=== PATIENT | female | born 1985 | race Caucasian/White ===

== ENCOUNTER 2019-05-14 00:27 | Inpatient (IN) | payer BC ==
[~2019-05-14 00:27] MED LIST: Bupivacaine 0.25% 10 ML SDV ONE; Lidocaine 1.5% with EPINEPHrine 1:200,000 5 ML Amp ONE
[2019-05-14] MEDS ORDERED: Calcium Carbonate 500 MG Tab.Chew PO PRN (01:10)
[2019-05-14] MEDS ORDERED: Acetaminophen 325 MG Tab PO PRN ×2 (01:10→17:14)
[2019-05-14] MEDS ORDERED: Ondansetron 4 MG/2 ML SDV IVPUSH PRN ×2 (01:10→08:24)
[2019-05-14] MEDS ORDERED: Sodium Chloride 0.9% 10 ML Syringe FLUSH PRN (01:10)
[2019-05-14] MEDS ORDERED: Oxytocin/Lactated Ringers 10 UNIT/1,000 ML BAG IV SCH ×2 (01:15)
[2019-05-14] MEDS: Lactated Ringers 1,000 ML IV SCH ×4 (04:06→12:13)
--- NOTE | 2019-05-14 06:23 | PCM.LDHP ---
L&D History of Present Illness - General Date of Service: 05/14/19 Admit Problem/Dx: Patient Status Order with Admit Dx/Problem 05/14/19 01:10 Patient Status [ADT] Routine Admission Diagnosis/Problem Admission Diagnosis/Problem 05/14/19 06:15 Yris is a 33-year-old 3 para 0020 white female who was admitted for spontaneous rupture membranes and early labor. She is presently at 39-4/7 weeks gestational age with an ZORAIDA of 05/17/2019. Source of Information: Patient History Limitations: Reports: No Limitations - History of Present Illness Introduction:: Yris is a 33-year-old 3 para 0020 white female who was admitted for spontaneous rupture membranes and early labor. She is presently at 39-4/7 weeks gestational age with an ZORAIDA of 05/17/2019.She was scheduled for induction on 2019 was delayed and during the course of the evening of that day had spontaneous rupture membranes with resultant clear amniotic fluid. She is not brett and making some cervical dilation. 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 This ZORAIDA is supported by multiple ultrasounds since that time. Patient has a history of recurrent loss with 2 losses 1 in late first trimester and one in the second trimester. Etiology of those losses uncertain but there was some question as to progesterone deficiency. Patient was treated with progesterone supplementation early in this . She is also treated with baby aspirin empirically. Had a relatively unremarkable . She is undergone testing since approximately 32 weeks gestational age with biophysical profiles on a weekly basis. Baby is made good growth interval. She is group B strep negative. She declined genetic testing. She is a gestational diabetic on diet control only with good results. She plans to breast-feed. She is okay with epidural in labor and delivery. course: First visit was on 09/24/2018 for a early confirmatory ultrasound. She seen on a regular basis during the course of weight gain was from 173 pounds up to 180 pounds for 17 pound gain. Fundal height growth was appropriate. Allergies: None Medications: 1. Baby [id number] mgone by mouth daily 2. vitamins daily Past medical history: 1. Miscarriage 2 as above. Past surgical history unremarkable. Family history: Mother is . She has had bile duct/liver cancer diagnosed in May 2018 and has since from this. Father is alive but has had valve replacement surgery for his heart valve defect. 3 brothers are alive and well. 3 sisters are alive and well. Maternal grandmother is secondary to breast cancer. Maternal grandfather is alive and well. Paternal grandmother is secondary to an aneurysm at age 51. She was a smoker. Paternal grandfather is at age 87. No family history of bleeding or clotting abnormalities otherwise. No anesthesia related issues or - related issues noted. Social history: Patient is . is Sandeep. They live in [place], [place]. 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 She does not use any significant most alcohol, drugs or tobacco. Review of systems: In general patient reports spontaneous rupture membranes with clear amniotic fluid and early onset of contractions. Skin: Negative Lungs: No infectious symptoms or shortness of breath Cardiovascular: No chest pain or exercise intolerance Breasts: No lumps, changes in size, pain, dimpling, discharge or axillary or supraclavicular concerns. changes are noted. GI: Negative : Body habitus changes noted secondary to . Musculoskeletal: Negative Neurological: Negative In general the patient is well-developed, well-nourished, pleasant female of stated age in no acute distress. On last evaluation in clinic blood pressure was 130/78 and 132/78. Weight was 180 pounds with pregravid weight of 173 pounds. Height is 5 feet 5 inches. heart rate at that time was 144. Prepregnancy body mass index was 28.3. Skin is warm dry without lesions. HEENT, neck and back within normal limits. Lungs are clear with good breath sounds in all lung chauhan. Cardiovascular exam shows regular and rhythm without murmurs. Breast exam is deferred at this time having been done previously and found to be normal. Abdomen is gravid with last fundal height clinic at 39 cm. Baby in vertex presentation.. Genital per bimanual exam on last valuation clinic showed cervix to be 2 cm, 80 % effaced, -3 station, very soft consistency, mid position. Vertex presentation confirmed. Extremities and neurological exam are grossly within normal limits. - Related Data Allergies/Adverse Reactions: Allergies Allergy/AdvReac Type Severity Reaction Status Date / Time No Known Allergies Allergy Verified 05/14/19 01:10 Home Medications: Home Meds Pnv No.95/Ferrous Fum/Folic AC [ Tablet] 1 each PO DAILY 12/30/17 [ History] Aspirin 81 mg PO DAILY 05/14/19 [History] Ferrous Sulfate [Iron] 325 mg PO DAILY 05/14/19 [History] Past Medical History - Past Health History Medical/Surgical History: Denies Medical/Surgical History HEENT History: Reports: Other (See Below) Other HEENT History: wears glasses OVERSEAMER History: Reports: Other OB/BYN History: 15 week demise with current Endocrine/Metabolic History: Reports: Diabetes, Gestational - Past Surgical History HEENT Surgical History: Reports: Oral Surgery, Other (See Below) Other HEENT Surgeries/Procedures: wisdom teeth removal Endocrine Surgical History: Reports: None Social & Family History - Family History Family Medical History: Noncontributory - Tobacco Use Smoking Status *Q: Never Smoker Second Hand Smoke Exposure: No - Recreational Drug Use Recreational Drug Use: No H&P Review of Systems - Review of Systems: Review Of Systems: See Below L&D Exam - Exam Exam: See Below - Vital Signs Vital Signs: Last Vital Signs Temp 37.1 C 05/14/19 01:10 Pulse 82 05/14/19 01:10 Resp 16 05/14/19 01:10 BP 135/83 05/14/19 01:10 Pulse Ox 99 05/14/19 01:10 Weight: 81.828 kg - Patient Data Lab Results Last 24 hrs: Laboratory Results - last 24 hr 05/14/19 Range/Units 01:44 WBC 11.49 H (3.98-10.04) K/mm3 RBC 3.53 L (3.98-5.22) M/mm3 Hgb 11.2 (11.2-15.7) gm/dl Hct 33.3 L (34.1-44.9) % MCV 94.3 (79.4-94.8) fl MCH 31.7 (25.6-32.2) pg MCHC 33.6 (32.2-35.5) g/dl RDW Std Deviation 46.8 H (36.4-46.3) fL Plt Count 247 (182-369) K/mm3 MPV 9.3 L (9.4-12.3) fl Result Diagrams: 05/14/19 01:44 Problem List Initiated/Reviewed/Updated: Yes Orders Last 24hrs: Active Orders 24 hr Category Date Time Status Patient Status [ADT] Routine ADT 05/14/19 01:10 Active Activity as Tolerated [RC] PFP Care 05/14/19 01:10 Active Communication Order [RC] ASDIRECTED Care 05/14/19 01:10 Active Heart Tones [RC] ASDIRECTED Care 05/14/19 01:11 Active Non Stress Test [RC] PER UNIT ROUTINE Care 05/14/19 01:10 Active Notify Provider [RC] PFP Care 05/14/19 01:10 Active Notify Provider [RC] PRN Care 05/14/19 01:10 Active Peripheral IV Care [RC] . DIRECTED Care 05/14/19 01:11 Active Vital Signs [RC] PER UNIT ROUTINE Care 05/14/19 01:10 Active Regular Diet [DIET] Diet 05/14/19 Breakfast Active RAPID PLASMA REAGIN,RPR [CHEM] Routine Lab 05/14/19 01:44 Received Acetaminophen [Tylenol] Med 05/14/19 01:10 Active 650 mg PO Q4H PRN Calcium Carbonate [Tums] Med 05/14/19 01:10 Active 1,000 mg PO Q2H PRN Lactated Ringers [Ringers, Lactated] 1,000 ml Med 05/14/19 01:15 Active IV ASDIRECTED Ondansetron [Zofran] Med 05/14/19 01:10 Active 4 mg IVPUSH Q4H PRN Oxytocin/Lactated Ringers [Pitocin in LR 10 Units/1,000 Med 05/14/19 01:15 Active ML] 10 unit in 1,000 ml IV .CONTINUOUS Oxytocin/Lactated Ringers [Pitocin in LR 10 Units/1,000 Med 05/14/19 01:15 Active ML] 10 unit in 1,000 ml IV TITRATE Sodium Chloride 0.9% [Saline Flush] Med 05/14/19 01:10 Active 10 ml FLUSH ASDIRECTED PRN Electronic Heart Tones Ext w TOCO [WOMSER] Oth 05/14/19 01:10 Ordered Routine Electronic Heart Tones Internal [WOMSER] Per Unit Oth 05/14/19 01:10 Ordered Routine Peripheral IV Insertion Adult [OM.PC] Routine Oth 05/14/19 01:10 Ordered Resuscitation Status Routine Resus Stat 05/14/19 01:10 Ordered Medication Orders Acetaminophen (Tylenol) 650 mg PO Q4H PRN PRN Reason: Pain (Mild 1-3) and fever Calcium Carbonate/Glycine (Tums) 1,000 mg PO Q2H PRN PRN Reason: Indigestion Lactated Ringer's (Ringers, Lactated) 1,000 mls @ 100 mls/hr IV ASDIRECTED BARRERA Last Admin: 05/14/19 04:06 Dose: 100 mls/hr Oxytocin/Lactated Ringer's (Pitocin In Lr 10 Units/1,000 Ml) 10 unit in 1,000 mls @ 12 mls/hr IV TITRATE BARRERA; Protocol Oxytocin/Lactated Ringer's (Pitocin In Lr 10 Units/1,000 Ml) 10 unit in 1,000 mls @ 500 mls/hr IV .CONTINUOUS BARRERA Ondansetron HCl (Zofran) 4 mg IVPUSH Q4H PRN PRN Reason: Nausea/Vomiting Sodium Chloride (Saline Flush) 10 ml FLUSH ASDIRECTED PRN PRN Reason: Keep Vein Open Assessment/Plan Comment:: 1. 39-4/7 week intrauterine , spontaneous rupture membranes with active labor and cervical change. 2. Risk factors for the include history of loss 2 3. Group B strep screen negative 4. Patient had influenza vaccination on 12/2018 and her T dap was given on 03/05. She is rubella immune. 5. Patient plans to breast-feed. 6. Patient is okay with epidural for labor analgesia. Plan: 1. Anticipate normal spontaneous vaginal delivery 2. CBC and RPR upon admission per protocol patient desire for epidural 3. Epidural per patient desire 4. Support patient's breast feeding decision
[2019-05-14] MEDS ORDERED: fentaNYL 100 MCG/2 ML SDV IVPUSH ONE (07:34)
[2019-05-14] MEDS ORDERED: ePHEDrine 50 MG/ML SDV IVPUSH PRN (08:24)
--- NOTE | 2019-05-14 08:28 | PCM.PREANE ---
Preanesthetic Assessment - Anesthesia/Transfusion/Family Hx Anesthesia History: No Prior Anesthesia Family History of Anesthesia Reaction: No Transfusion History: No Prior Transfusion(s) Intubation History: Unknown - Physical Assessment NPO Status Date: 05/14/19 Vital Signs: Last Vital Signs Temp 37.1 C 05/14/19 01:10 Pulse 82 05/14/19 01:10 Resp 16 05/14/19 01:10 BP 135/83 05/14/19 01:10 Pulse Ox 99 05/14/19 01:10 Height: 1.57 m Weight: 81.828 kg ASA Class: 2 Mental Status: Alert & Oriented x3 - Lab Values: Laboratory Last Values WBC 11.49 K/mm3 (3.98-10.04) H 05/14/19 01:44 RBC 3.53 M/mm3 (3.98-5.22) L 05/14/19 01:44 Hgb 11.2 gm/dl (11.2-15.7) 05/14/19 01:44 Hct 33.3 % (34.1-44.9) L 05/14/19 01:44 MCV 94.3 fl (79.4-94.8) 05/14/19 01:44 MCH 31.7 pg (25.6-32.2) 05/14/19 01:44 MCHC 33.6 g/dl (32.2-35.5) 05/14/19 01:44 RDW Std Deviation 46.8 fL (36.4-46.3) H 05/14/19 01:44 Plt Count 247 K/mm3 (182-369) 05/14/19 01:44 MPV 9.3 fl (9.4-12.3) L 05/14/19 01:44 All labs reviewed and noted and within acceptable ranges to proceed with epidural if desired. - Allergies Allergies/Adverse Reactions: Allergies Allergy/AdvReac Type Severity Reaction Status Date / Time No Known Allergies Allergy Verified 05/14/19 01:10 - Anesthesia Plan Pre-Op Medication Ordered: None - Acknowledgements Anesthesia Type Planned: Epidural Pt an Appropriate Candidate for the Planned Anesthesia: Yes Alternatives and Risks of Anesthesia Discussed w Pt/Guardian: Yes Pt/Guardian Understands and Agrees with Anesthesia Plan: Yes PreAnesthesia Questionnaire - Past Health History Medical/Surgical History: Denies Medical/Surgical History HEENT History: Reports: Other (See Below) Other HEENT History: wears glasses 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 OB/BYN History: 15 week demise with current Endocrine/Metabolic History: Reports: Diabetes, Gestational - Past Surgical History HEENT Surgical History: Reports: Oral Surgery, Other (See Below) Other HEENT Surgeries/Procedures: wisdom teeth removal Endocrine Surgical History: Reports: None - SUBSTANCE USE Smoking Status *Q: Never Smoker Second Hand Smoke Exposure: No Recreational Drug Use History: No - HOME MEDS Home Medications: Home Meds Pnv No.95/Ferrous Fum/Folic AC [ Tablet] 1 each PO DAILY 12/30/17 [ History] Aspirin 81 mg PO DAILY 05/14/19 [History] Ferrous Sulfate [Iron] 325 mg PO DAILY 05/14/19 [History] - CURRENT (IN HOUSE) MEDS Current Meds: Current Medications Acetaminophen (Tylenol) 650 mg PO Q4H PRN PRN Reason: Pain (Mild 1-3) and fever Calcium Carbonate/Glycine (Tums) 1,000 mg PO Q2H PRN PRN Reason: Indigestion Ephedrine Sulfate (Ephedrine Sulfate) 5 mg IVPUSH ASDIRECTED PRN PRN Reason: Hypotension Fentanyl (Sublimaze) 100 mcg EPIDUR Q3H PRN PRN Reason: Pain Fentanyl/Bupivacaine HCl (Fentanyl/Bupivacaine/Ns 2 Mcg-0.125% 100 Ml) 100 ml EPIDUR ASDIRECTED BARRERA Lactated Ringer's (Ringers, Lactated) 1,000 mls @ 100 mls/hr IV ASDIRECTED BARRERA Last Admin: 05/14/19 07:59 Dose: 100 mls/hr Oxytocin/Lactated Ringer's (Pitocin In Lr 10 Units/1,000 Ml) 10 unit in 1,000 mls @ 12 mls/hr IV TITRATE BARRERA; Protocol Oxytocin/Lactated Ringer's (Pitocin In Lr 10 Units/1,000 Ml) 10 unit in 1,000 mls @ 500 mls/hr IV .CONTINUOUS BARRERA Phenylephrine HCl 1 mg/ Sodium (Chloride) 10.1 mls @ 1 mls/sec IV TITRATE BARRERA; Protocol Ondansetron HCl (Zofran) 4 mg IVPUSH Q4H PRN PRN Reason: Nausea/Vomiting Ondansetron HCl (Zofran) 4 mg IVPUSH ONETIME PRN PRN Reason: Nausea/Vomiting Sodium Chloride (Saline Flush) 10 ml FLUSH ASDIRECTED PRN PRN Reason: Keep Vein Open Discontinued Medications Fentanyl (Sublimaze) 50 mcg IVPUSH ONETIME ONE Stop: 05/14/19 07:35
[2019-05-14] MEDS ORDERED: Phenylephrine 1 MG in Sodium Chloride 0.9% 10 ML IV PRN (08:30)
[2019-05-14] MEDS ORDERED: Bupivacaine/fentaNYL/NS 100 ML Bag EPIDUR SCH (08:30)
[2019-05-14] MEDS: fentaNYL 100 MCG/2 ML SDV EPIDUR PRN ×2 (09:03→13:27)
--- NOTE | 2019-05-14 09:24 | PCM.PREANE ---
Preanesthetic Assessment - Procedure Proposed Procedure: magali - Anesthesia/Transfusion/Family Hx Anesthesia History: No Prior Anesthesia Family History of Anesthesia Reaction: No Transfusion History: No Prior Transfusion(s) Intubation History: Unknown - Review of Systems General: Chills (today) Pulmonary: No Symptoms Cardiovascular: No Symptoms Gastrointestinal: No Symptoms Neurological: No Symptoms Other: Reports: Diabetes (diet) - Physical Assessment NPO Status Date: 05/14/19 Vital Signs: Last Vital Signs Temp 98.7 F 05/14/19 01:10 Pulse 82 05/14/19 01:10 Resp 16 05/14/19 01:10 BP 135/83 05/14/19 01:10 Pulse Ox 99 05/14/19 01:10 Height: 5 ft 2 in Weight: 81.828 kg ASA Class: 2 Mental Status: Alert & Oriented x3 Airway Class: Mallampati = 1 Dentition: Reports: Normal Dentition Thyro-Mental Finger Breadths: 3 Mouth Opening Finger Breadths: 3 ROM/Head Extension: Full Lungs: Clear to Auscultation, Normal Respiratory Effort Cardiovascular: Regular Rate, Regular Rhythm, No Murmurs - Lab Values: Laboratory Last Values WBC 11.49 K/mm3 (3.98-10.04) H 05/14/19 01:44 RBC 3.53 M/mm3 (3.98-5.22) L 05/14/19 01:44 Hgb 11.2 gm/dl (11.2-15.7) 05/14/19 01:44 Hct 33.3 % (34.1-44.9) L 05/14/19 01:44 MCV 94.3 fl (79.4-94.8) 05/14/19 01:44 MCH 31.7 pg (25.6-32.2) 05/14/19 01:44 MCHC 33.6 g/dl (32.2-35.5) 05/14/19 01:44 RDW Std Deviation 46.8 fL (36.4-46.3) H 05/14/19 01:44 Plt Count 247 K/mm3 (182-369) 05/14/19 01:44 MPV 9.3 fl (9.4-12.3) L 05/14/19 01:44 - Allergies Allergies/Adverse Reactions: Allergies Allergy/AdvReac Type Severity Reaction Status Date / Time No Known Allergies Allergy Verified 05/14/19 01:10 - Blood Blood Available: No - Acknowledgements Anesthesia Type Planned: Epidural Pt an Appropriate Candidate for the Planned Anesthesia: Yes Alternatives and Risks of Anesthesia Discussed w Pt/Guardian: Yes Pt/Guardian Understands and Agrees with Anesthesia Plan: Yes PreAnesthesia Questionnaire - Past Health History Medical/Surgical History: Denies Medical/Surgical History HEENT History: Reports: Other (See Below) Other HEENT History: wears glasses Cardiovascular History: Reports: None Respiratory History: Reports: None Gastrointestinal History: Reports: GERD (with preg) 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: : 3 (39 4 weeks) Para: 0 Other OB/BYN History: 15 week demise with current Endocrine/Metabolic History: Reports: Diabetes, Gestational - Past Surgical History HEENT Surgical History: Reports: Oral Surgery, Other (See Below) Other HEENT Surgeries/Procedures: wisdom teeth removal Endocrine Surgical History: Reports: None - SUBSTANCE USE Smoking Status *Q: Never Smoker Tobacco Use Within Last Twelve Months: No Second Hand Smoke Exposure: No Days Per Week of Alcohol Use: 0 Recreational Drug Use History: No - HOME MEDS Home Medications: Home Meds Pnv No.95/Ferrous Fum/Folic AC [ Tablet] 1 each PO DAILY 12/30/17 [ History] Aspirin 81 mg PO DAILY 05/14/19 [History] Ferrous Sulfate [Iron] 325 mg PO DAILY 05/14/19 [History] - CURRENT (IN HOUSE) MEDS Current Meds: Current Medications Acetaminophen (Tylenol) 650 mg PO Q4H PRN PRN Reason: Pain (Mild 1-3) and fever Calcium Carbonate/Glycine (Tums) 1,000 mg PO Q2H PRN PRN Reason: Indigestion Ephedrine Sulfate (Ephedrine Sulfate) 5 mg IVPUSH ASDIRECTED PRN PRN Reason: Hypotension Fentanyl (Sublimaze) 100 mcg EPIDUR Q3H PRN PRN Reason: Pain Last Admin: 05/14/19 09:03 Dose: 100 mcg Fentanyl/Bupivacaine HCl (Fentanyl/Bupivacaine/Ns 2 Mcg-0.125% 100 Ml) 100 ml EPIDUR ASDIRECTED BARRERA Last Admin: 05/14/19 09:02 Dose: 100 ml Lactated Ringer's (Ringers, Lactated) 1,000 mls @ 100 mls/hr IV ASDIRECTED BARRERA Last Admin: 05/14/19 09:00 Dose: 100 mls/hr Oxytocin/Lactated Ringer's (Pitocin In Lr 10 Units/1,000 Ml) 10 unit in 1,000 mls @ 12 mls/hr IV TITRATE BARRERA; Protocol Oxytocin/Lactated Ringer's (Pitocin In Lr 10 Units/1,000 Ml) 10 unit in 1,000 mls @ 500 mls/hr IV .CONTINUOUS BARRERA Phenylephrine HCl 1 mg/ Sodium (Chloride) 10.1 mls @ 1 mls/sec IV TITRATE PRN; Protocol PRN Reason: HYPOTENSION Ondansetron HCl (Zofran) 4 mg IVPUSH Q4H PRN PRN Reason: Nausea/Vomiting Ondansetron HCl (Zofran) 4 mg IVPUSH ONETIME PRN PRN Reason: Nausea/Vomiting Sodium Chloride (Saline Flush) 10 ml FLUSH ASDIRECTED PRN PRN Reason: Keep Vein Open Discontinued Medications Fentanyl (Sublimaze) 50 mcg IVPUSH ONETIME ONE Stop: 05/14/19 07:35
[2019-05-14] MEDS ORDERED: Lidocaine 1% 50 ML MDV ONE (16:31)
--- NOTE | 2019-05-14 17:03 | PCM.SN ---
- Free Text/Narrative Note: Delivery note: Yris is a 33-year-old 3 para 0020 white female who was admitted for spontaneous rupture membranes and early labor. She is presently at 39-4/7 weeks gestational age with an ZORAIDA of 05/17/2019.Patient is gestational diabetic does reasonably well controlled with diet alone. She is admitted during the course of the night, made steady progress. She had an epidural for labor analgesia. She became completely dilated at approximately 2:30 hours. At approximately 1610 hrs. patient was moderately fatigued and was requesting intervention for her labor. Discussion was held her as to options including continued pushing, attempted vacuum extraction of the baby and primary section. Risks and benefits of each were discussed. Patient opted for vacuum extraction delivery. This was then undertaken. At 1614 hrs. a viable, cortes, male with Apgars of 8 and 9, a weight of 4130 g (9 lbs. 2 oz.), a length of 21.0 inches was delivered via vacuum extraction with one contraction. There were no pop offs. The baby was placed on mom's abdomen. The cord was allowed to pulsate 3 minutes and then was clamped 2 and cut by the patient's Sandeep. Pitocin was increased to 500 mL an hour to facilitate increase in uterine tone and decreased likelihood of bleeding. It should be noted there was terminal meconium that followed the baby out. There was nuchal cord 1 which was reduced over the baby's head without problems. There is no evidence of any shoulder dystocia or other delivery problems. There was a combination of lacerations including a by sulcus vaginal laceration , a right vaginal/labia minora laceration and a third degree perineal laceration. These were all repaired in routine fashion using 3-0 Monocryl suture. The perineal laceration was infiltrated with lidocaine 1%20 mL total. The placenta delivered at 1619 hrs. in a Marks presentation, appeared intact and complete and was discarded per patient desire. Vocal cord had 3 vessels. Cord blood was obtained prior to delivery of the placenta. Estimated blood loss was approximately 300 mL. Patient plans to breast-feed. Condition: Good
[2019-05-14] MEDS ORDERED: Benzocaine/Menthol 20%-0.5% Spray 56 GM Canister TOP PRN (17:14)
[2019-05-14] MEDS ORDERED: Witch Hazel Medicated Pads 40/Jar TOP PRN (17:14)
[2019-05-14] MEDS: Docusate Sodium 100 MG Cap PO SCH (20:14)
[2019-05-14] MEDS: Ibuprofen 600 MG Tab PO PRN (20:14)
[2019-05-15] MEDS: Ibuprofen 600 MG Tab PO PRN ×4 (04:15→18:50)
--- NOTE | 2019-05-15 07:03 | PCM.SN ---
- Free Text/Narrative Note: note: Patient is doing well in the period. Minimal lochia, voiding well, ambulated without problems. Nursing without concerns. Patient is afebrile, vital signs are stable Abdomen is flat, soft, uterus is below the umbilicus and is firm and nontender. Legs are nontender. Assessment: recovery going well. Plan: Routine care. Patient be discharged home within the next 24-48 hours.
[2019-05-15] MEDS: Prenatal Multivitamin with Calcium/Folic Acid/Iron Tab PO SCH (10:33)
[2019-05-15] MEDS: Docusate Sodium 100 MG Cap PO SCH ×2 (10:33→20:50)
--- NOTE | 2019-05-15 12:06 | PCM48HPAN ---
Post Anesthesia Note - EVALUATION WITHIN 48HRS OF ANESTHETIC Vital Signs in Normal Range: Yes Patient Participated in Evaluation: Yes Respiratory Function Stable: Yes Airway Patent: Yes Cardiovascular Function Stable: Yes Hydration Status Stable: Yes Pain Control Satisfactory: Yes Nausea and Vomiting Control Satisfactory: Yes Mental Status Recovered: Yes Vital Signs: Last Vital Signs Temp 36.8 C 05/15/19 04:09 Pulse 78 05/15/19 09:00 Resp 16 05/15/19 09:00 BP 122/53 L 05/15/19 09:00 Pulse Ox 100 05/15/19 09:00 - COMMENTS/OBSERVATIONS Free Text/Narrative:: Up walking around today without difficulty. No further questions or concerns.
[2019-05-15] MEDS ORDERED: Hydrocortisone Acetate 25 MG Supp RECTAL PRN (20:13)
[2019-05-16] MEDS: Ibuprofen 600 MG Tab PO PRN ×2 (06:22→10:27)
[2019-05-16] MEDS: Prenatal Multivitamin with Calcium/Folic Acid/Iron Tab PO SCH (10:05)
[2019-05-16] MEDS: Docusate Sodium 100 MG Cap PO SCH (10:05)
[2019-05-16 10:08] VITALS: BP 130/72; PULSE 77
[2019-05-16] MEDS ORDERED: Magnesium Hydroxide 400 MG/5 ML Susp 30 ML Cup PO SCH (10:30)
--- NOTE | 2019-05-16 10:30 | PCM.SN ---
- Free Text/Narrative Note: Post Progress Note PPD #2 Subjective: Doing well overall. Ambulating without difficulty. Lochia minimal. Voiding without difficulty. Tolerating regular diet without nausea or vomiting. Pain controlled with oral medications. Reports feeling sore in her pelvis and low back. Medications are helping with this however. Reports that she is passing flatus and has not had a bowel movement at this time. Breast-feeding with minimal difficulty. Objective: Vitals: Vital Signs - 24 hr 05/15/19 05/15/19 05/16/19 14:32 20:08 02:53 Temperature 36.7 C 36.4 C Pulse, 87 84 84 Peripheral Respiratory 15 14 14 Rate Blood Pressure 109/53 L 124/70 127/75 O2 Sat by Pulse 98 97 98 Oximetry 05/16/19 10:04 Temperature Pulse, 77 Peripheral Respiratory 14 Rate Blood Pressure 130/72 O2 Sat by Pulse 99 Oximetry Physical Exam General: Alert and oriented, no acute distress Lungs: Clear to auscultation bilaterally Heart: Regular rate and rhythm Abdomen: Soft, minimal appropriate tenderness, non-distended, fundus midline, nontender, and at the umbilicus Extremities: Trace edema in bilateral lower extremities to mid shins ASSESSMENT: 33-year-old female -0-2-1 s/p vacuum-assisted vaginal delivery PPD #2, complicated by third-degree laceration and A1 gestational diabetes PLAN: Doing well Breast-feeding with minimal difficulty. Assist as needed Lochia minimal. Continue to monitor for appropriate lochia. Patient currently taking Colace twice daily. Recommend for her to start taking milk of magnesia 30 mL 1-3 times daily to help with bowel movements Continue routine care Discharge home today Anthony Samuel MD 10:29 AM 05/16/2019
--- NOTE | 2019-05-16 10:43 | PCM.DCSUM1 ---
Discharge Summary - Hospital Course Free Text/Narrative:: Delivery note: Yris is a 33-year-old 3 para 0020 white female who was admitted for spontaneous rupture membranes and early labor. She is presently at 39-4/7 weeks gestational age with an ZORAIDA of 05/17/2019.Patient is gestational diabetic does reasonably well controlled with diet alone. She is admitted during the course of the night, made steady progress. She had an epidural for labor analgesia. She became completely dilated at approximately 2:30 hours. At approximately 1610 hrs. patient was moderately fatigued and was requesting intervention for her labor. Discussion was held her as to options including continued pushing, attempted vacuum extraction of the baby and primary section. Risks and benefits of each were discussed. Patient opted for vacuum extraction delivery. This was then undertaken. At 1614 hrs. a viable, cortes, male infant with Apgars of 8 and 9, a weight of 4130 g (9 lbs. 2 oz.), a length of 21.0 inches was delivered via vacuum extraction with one contraction. There were no pop offs. The baby was placed on mom's abdomen. The cord was allowed to pulsate 3 minutes and then was clamped 2 and cut by the patient's Sandeep. Pitocin was increased to 500 mL an hour to facilitate increase in uterine tone and decreased likelihood of bleeding. It should be noted there was terminal meconium that followed the baby out. There was nuchal cord 1 which was reduced over the baby's head without problems. There is no evidence of any shoulder dystocia or other delivery problems. There was a combination of lacerations including a by sulcus vaginal laceration , a right vaginal/labia minora laceration and a third degree perineal laceration. These were all repaired in routine fashion using 3-0 Monocryl suture. The perineal laceration was infiltrated with lidocaine 1%20 mL total. The placenta delivered at 1619 hrs. in a Marks presentation, appeared intact and complete and was discarded per patient desire. Vocal cord had 3 vessels. Cord blood was obtained prior to delivery of the placenta. Estimated blood loss was approximately 300 mL. Patient plans to breast-feed. Condition: Good HPI Initial Comments: Delivery note: Yris is a 33-year-old 3 para 0020 white female who was admitted for spontaneous rupture membranes and early labor. She is presently at 39-4/7 weeks gestational age with an ZORAIDA of 05/17/2019.Patient is gestational diabetic does reasonably well controlled with diet alone. She is admitted during the course of the night, made steady progress. She had an epidural for labor analgesia. She became completely dilated at approximately 2:30 hours. At approximately 1610 hrs. patient was moderately fatigued and was requesting intervention for her labor. Discussion was held her as to options including continued pushing, attempted vacuum extraction of the baby and primary section. Risks and benefits of each were discussed. Patient opted for vacuum extraction delivery. This was then undertaken. At 1614 hrs. a viable, cortes, male with Apgars of 8 and 9, a weight of 4130 g (9 lbs. 2 oz.), a length of 21.0 inches was delivered via vacuum extraction with one contraction. There were no pop offs. The baby was placed on mom's abdomen. The cord was allowed to pulsate 3 minutes and then was clamped 2 and cut by the patient's Sandeep. Pitocin was increased to 500 mL an hour to facilitate increase in uterine tone and decreased likelihood of bleeding. It should be noted there was terminal meconium that followed the baby out. There was nuchal cord 1 which was reduced over the baby's head without problems. There is no evidence of any shoulder dystocia or other delivery problems. There was a combination of lacerations including a by sulcus vaginal laceration , a right vaginal/labia minora laceration and a third degree perineal laceration. These were all repaired in routine fashion using 3-0 Monocryl suture. The perineal laceration was infiltrated with lidocaine 1%20 mL total. The placenta delivered at 1619 hrs. in a Marks presentation, appeared intact and complete and was discarded per patient desire. Vocal cord had 3 vessels. Cord blood was obtained prior to delivery of the placenta. Estimated blood loss was approximately 300 mL. Patient plans to breast-feed. Condition: Good Brief History: Delivery note: Yris is a 33-year-old 3 para 0020 white female who was admitted for spontaneous rupture membranes and early labor. She is presently at 39-4/7 weeks gestational age with an ZORAIDA of 2019.Patient is gestational diabetic does reasonably well controlled with diet alone. She is admitted during the course of the night, made steady progress. She had an epidural for labor analgesia. She became completely dilated at approximately 2:30 hours. At approximately 1610 hrs. patient was moderately fatigued and was requesting intervention for her labor. Discussion was held her as to options including continued pushing, attempted vacuum extraction of the baby and primary section. Risks and benefits of each were discussed. Patient opted for vacuum extraction delivery. This was then undertaken. At 1614 hrs. a viable, cortes, male with Apgars of 8 and 9, a weight of 4130 g (9 lbs. 2 oz.), a length of 21.0 inches was delivered via vacuum extraction with one contraction. There were no pop offs. The baby was placed on mom's abdomen. The cord was allowed to pulsate 3 minutes and then was clamped 2 and cut by the patient's Sandeep. Pitocin was increased to 500 mL an hour to facilitate increase in uterine tone and decreased likelihood of bleeding. It should be noted there was terminal meconium that followed the baby out. There was nuchal cord 1 which was reduced over the baby's head without problems. There is no evidence of any shoulder dystocia or other delivery problems. There was a combination of lacerations including a by sulcus vaginal laceration , a right vaginal/labia minora laceration and a third degree perineal laceration. These were all repaired in routine fashion using 3-0 Monocryl suture. The perineal laceration was infiltrated with lidocaine 1%20 mL total. The placenta delivered at 1619 hrs. in a Marks presentation, appeared intact and complete and was discarded per patient desire. Vocal cord had 3 vessels. Cord blood was obtained prior to delivery of the placenta. Estimated blood loss was approximately 300 mL. Patient plans to breast-feed. Condition: Good Diagnosis: Stroke: No - Discharge Data Discharge Date: 05/16/19 Discharge Disposition: Home, Self-Care 01 Condition: Good - Referral to Home Health Primary Care Physician: Richard Beckford MD - Discharge Diagnosis/Problem(s) (1) 39 weeks gestation of SNOMED Code(s): 53615490 ICD Code: Z3A.39 - 39 WEEKS GESTATION OF Status: Acute Current Visit: Yes (2) Vaginal delivery SNOMED Code(s): 448165231 ICD Code: O80 - ENCOUNTER FOR FULL-TERM UNCOMPLICATED DELIVERY Status: Acute Current Visit: Yes (3) Status post vacuum-assisted vaginal delivery SNOMED Code(s): 370214157, 51626038958463031 ICD Code: Z87.59 - PERSONAL HISTORY OF COMP OF PREG, CHLDBRTH AND THE PUERP Status: Acute Current Visit: Yes (4) Third degree perineal laceration during delivery SNOMED Code(s): 69942552, 024936187 ICD Code: O70.20 - THIRD DEGREE PERINEAL LACERATION DURING DELIVERY, UNSP Status: Acute Current Visit: Yes (5) White classification A1 gestational diabetes mellitus SNOMED Code(s): 08475762 ICD Code: O24.410 - GESTATIONAL DIABETES MELLITUS IN , DIET CONTROLLED Status: Acute Current Visit: Yes - Patient Summary/Data Complications: Vacuum assisted vaginal delivery with third degree perineal laceration. Consults: None Hospital Course: Yris Flores was admitted for spontaneous rupture of membranes with clear fluid. On admission her cervix was dilated to 2 cm. She was GBS negative. She was given pitocin for augmentation. She was given an epidural for anesthesia. She progressed to complete and began pushing. During pushing patient became fatigued and decision was made to proceed with vacuum-assisted vaginal delivery. On 05/14/2019 she had a vacuum-assisted vaginal delivery of a live male at 16:14. Apgars of 8 and 9. Weight of 4130 g (9 pounds 1.7 ounces). Her delivery was complicated by third-degree laceration that was repaired in normal fashion. Her course was uneventful. Her pain was well controlled and she had minimal lochia. She was ambulating, tolerating a regular diet and voiding normally. She was breast-feeding with minimal difficulty. She was afebrile and her hematocrit was 33.3 on admission.she had not had a bowel movement prior to discharge but was passing flatus. She was started on Colace and milk of magnesia to help with bowel movements. She desired to be discharged home on the morning of PPD #2. Her blood type is A+. - Patient Instructions Diet: Regular Diet as Tolerated Activity: Apply Ice, As Tolerated Activity, Other: Nothing in the vagina for 6 weeks Driving: May Drive Today Showering/Bathing: May Shower Wound/Incision Care: Keep Operative Site/Wound Site Clean and Dry Notify Provider of: Fever, Increased Pain, Swelling and Redness, Drainage, Nausea and/or Vomiting Other/Special Instructions: Please contact your physician's office if you have heavy vaginal bleeding enough to soak a pad in less than an hour for several hours. Monitor for any signs of an infection in the breasts with severe pain or redness of the breast. You will want to ensure that you do not have any significant constipation or straining with bowel movements. You want to use Colace twice daily with a large glass of water with each dose to help have softer bowel movements. You want to ensure that the bowel movements are about the consistency of toothpaste to reduce chances for damage to the vaginal laceration. You may use milk of magnesia 30 mL (1 capful) 1-3 times daily to help with constipation if you feel like you are becoming more constipated. - Discharge Plan *PRESCRIPTION DRUG MONITORING PROGRAM REVIEWED*: Not Applicable *COPY OF PRESCRIPTION DRUG MONITORING REPORT IN PATIENT LUCIANA: Not Applicable Home Medications: Home Meds Pnv No.95/Ferrous Fum/Folic AC [ Tablet] 1 each PO DAILY 12/30/17 [ History] Ferrous Sulfate [Iron] 325 mg PO DAILY 05/14/19 [History] Acetaminophen [Tylenol] 650 mg PO Q6H PRN #30 tablet 05/16/19 [Rx] Benzocaine/Menthol [Dermoplast Pain Relief [place]] 1 spray TOP ASDIRECTED PRN canister 05/16/19 [Rx] Docusate Sodium [Colace] 100 mg PO BID cap 05/16/19 [Rx] Hydrocortisone Acetate [Anucort-HC] 25 mg RECTAL BID PRN supp 05/16/19 [Rx] Ibuprofen [Motrin] 600 mg PO Q6H PRN tablet 05/16/19 [Rx] Magnesium Hydroxide [Milk of Magnesia] 30 ml PO BID cup 05/16/19 [Rx] witch Mehnaz [Tucks] 1 pad TOP ASDIRECTED PRN pad 05/16/19 [Rx] Patient Handouts: Disposable Sitz Bath, Care of a Perineal Tear, Care After Vaginal Delivery Referrals: Richard Beckford MD [Primary Care Provider] - (Follow-up in 1 to 2 weeks for routine check for third-degree laceration or earlier as needed.) - Discharge Summary/Plan Comment DC Time >30 min.: No - Patient Data Vitals - Most Recent: Last Vital Signs Temp 36.4 C 05/16/19 02:53 Pulse 77 05/16/19 10:04 Resp 14 05/16/19 10:04 BP 130/72 05/16/19 10:04 Pulse Ox 99 05/16/19 10:04 Weight - Most Recent: 81.828 kg Med Orders - Current: Current Medications Acetaminophen (Tylenol) 650 mg PO Q4H PRN PRN Reason: mild pain or fever Benzocaine/Menthol (Dermoplast Pain Relief [place]) 0 gm TOP ASDIRECTED PRN PRN Reason: Perineal Comfort Measure Last Admin: 05/14/19 20:16 Dose: 1 canister Docusate Sodium (Colace) 100 mg PO BID [facility] Last Admin: 05/16/19 10:05 Dose: 100 mg Hydrocortisone Acetate (Anucort-Hc) 25 mg RECTAL BID PRN PRN Reason: rectal pain Last Admin: 05/15/19 20:50 Dose: 25 mg Ibuprofen (Motrin) 600 mg PO Q4H PRN PRN Reason: Mild pain or fever Last Admin: 05/16/19 10:27 Dose: 600 mg Magnesium Hydroxide (Milk Of Magnesia) 30 ml PO BID [facility] Last Admin: 05/16/19 10:28 Dose: 30 ml Prenat Multivit/Flight Control Specialist/Iron/Folic Ac ( Plus Iron) 1 each PO DAILY [facility] Last Admin: 05/16/19 10:05 Dose: 1 each Witch Mehnaz (Tucks) 1 pad TOP ASDIRECTED PRN PRN Reason: Perineal Comfort Measure Last Admin: 05/14/19 20:16 Dose: 1 tub Discontinued Medications Acetaminophen (Tylenol) 650 mg PO Q4H PRN PRN Reason: Pain (Mild 1-3) and fever Bupivacaine HCl (Sensorcaine-Mpf 0.25%) 10 ml .ROUTE .STK-MED ONE Stop: 05/14/19 00:01 Calcium Carbonate/Glycine (Tums) 1,000 mg PO Q2H PRN PRN Reason: Indigestion Ephedrine Sulfate (Ephedrine Sulfate) 5 mg IVPUSH ASDIRECTED PRN PRN Reason: Hypotension Fentanyl (Sublimaze) 50 mcg IVPUSH ONETIME ONE Stop: 05/14/19 07:35 Last Admin: 05/14/19 12:00 Dose: Not Given Fentanyl (Sublimaze) 100 mcg EPIDUR Q3H PRN PRN Reason: Pain Last Admin: 05/14/19 13:27 Dose: 100 mcg Fentanyl/Bupivacaine HCl (Fentanyl/Bupivacaine/Ns 2 Mcg-0.125% 100 Ml) 100 ml EPIDUR ASDIRECTED [facility] Last Admin: 05/14/19 09:02 Dose: 100 ml Lactated Ringer's (Ringers, Lactated) 1,000 mls @ 100 mls/hr IV ASDIRECTED [facility] Last Admin: 05/14/19 12:13 Dose: 100 mls/hr Oxytocin/Lactated Ringer's (Pitocin In Lr 10 Units/1,000 Ml) 10 unit in 1,000 mls @ 12 mls/hr IV TITRATE [facility]; Protocol Last Admin: 05/14/19 12:04 Dose: 2 munits/min, 12 mls/hr Oxytocin/Lactated Ringer's (Pitocin In Lr 10 Units/1,000 Ml) 10 unit in 1,000 mls @ 500 mls/hr IV .CONTINUOUS [facility] Phenylephrine HCl 1 mg/ Sodium (Chloride) 10.1 mls @ 1 mls/sec IV TITRATE PRN; Protocol PRN Reason: HYPOTENSION Lidocaine HCl (Xylocaine 1%) Confirm Administered Dose 50 ml .ROUTE .STK-MED ONE Stop: 05/14/19 16:32 Last Admin: 05/14/19 16:45 Dose: 50 ml Lidocaine/Epinephrine (Xylocaine-Mpf 1.5% W/Epinephrine 1:200,000) 5 ml .ROUTE .STK-MED ONE Stop: 05/14/19 00:01 Ondansetron HCl (Zofran) 4 mg IVPUSH Q4H PRN PRN Reason: Nausea/Vomiting Ondansetron HCl (Zofran) 4 mg IVPUSH ONETIME PRN PRN Reason: Nausea/Vomiting Sodium Chloride (Saline Flush) 10 ml FLUSH ASDIRECTED PRN PRN Reason: Keep Vein Open
== END 2019-05-16 12:00 | disposition home or self-care (01) | DRG 542 ==
LOC: JD.OBCHECK 00:27 → JD.OB 00:31 → JD.OBCHECK 01:21 → OBSVTOIN 16:14 → JD.OB 16:47
PROVIDERS: ADMIT Obstetrics & Gynecology; ATTEND Obstetrics & Gynecology
PROC: 10D07Z6 Extraction of Products of Conception, Vacuum, Via Natural or Artificial Opening (ICD-10-PCS; principal; 2019-05-14)
PROC: 0DQR0ZZ Repair Anal Sphincter, Open Approach (ICD-10-PCS; 2019-05-14)
PROC: 3E0R3BZ Introduction of Anesthetic Agent into Spinal Canal, Percutaneous Approach (ICD-10-PCS; 2019-05-14)
DX: O24.410 Gestational diabetes mellitus in pregnancy, diet controlled (principal); O77.0 Labor and delivery complicated by meconium in amniotic fluid; O69.81X0 Labor and delivery complicated by cord around neck, without compression, not applicable or unspecified; O70.20 Third degree perineal laceration during delivery, unspecified; Z3A.39 39 weeks gestation of pregnancy; Z37.0 Single live birth; Z79.82 Long term (current) use of aspirin; Z79.899 Other long term (current) drug therapy
CPT/HCPCS: 36415; 51702; 59025; 59409; 85027; 86592; A9270-GY; J2001; J2590; J3010; J3490; J7120

== ENCOUNTER 2020-12-04 03:36 | Inpatient (IN) | payer BC ==
[~2020-12-04 03:36] MED LIST changes: -Lidocaine 1.5% with EPINEPHrine 1:200,000 5 ML Amp ONE
[2020-12-04] MEDS ORDERED: Sodium Chloride 0.9% 10 ML Syringe FLUSH PRN (04:55)
[2020-12-04] MEDS ORDERED: Nalbuphine 10 MG/1 ML Vial IVPUSH PRN (04:55)
[2020-12-04] MEDS ORDERED: Oxytocin/Lactated Ringers 10 UNIT/1,000 ML BAG IV SCH ×2 (05:00)
[2020-12-04] MEDS: Lactated Ringers 1,000 ML IV SCH ×2 (07:02→07:39)
[2020-12-04] MEDS ORDERED: Bupivacaine/fentaNYL/NS 100 ML Bag EPIDUR PRN (07:52)
[2020-12-04] MEDS ORDERED: diphenhydrAMINE 50 MG/ML SDV IVPUSH PRN (07:52)
[2020-12-04] MEDS ORDERED: fentaNYL 100 MCG/2 ML SDV EPIDUR PRN (07:52)
[2020-12-04] MEDS ORDERED: ePHEDrine 50 MG/ML SDV IVPUSH PRN (07:52)
--- NOTE | 2020-12-04 08:27 | PCM.PREANE ---
Preanesthetic Assessment - Procedure Proposed Procedure: epidural - Anesthesia/Transfusion/Family Hx Anesthesia History: Prior Anesthesia Without Reaction Family History of Anesthesia Reaction: No Transfusion History: No Prior Transfusion(s) Intubation History: Unknown - Review of Systems General: Fatigue Pulmonary: No Symptoms Cardiovascular: No Symptoms Gastrointestinal: Abdominal Pain (labor) Neurological: No Symptoms Other: Reports: None - Physical Assessment Vital Signs: Last Vital Signs Temp 37.2 C 12/04/20 04:00 Pulse 88 12/04/20 04:00 Resp 16 12/04/20 04:00 BP 137/69 12/04/20 04:00 Pulse Ox 100 12/04/20 04:00 Height: 1.57 m Weight: 81.329 kg ASA Class: 2 Mental Status: Alert & Oriented x3 Airway Class: Mallampati = 1 Dentition: Reports: Normal Dentition Thyro-Mental Finger Breadths: 3 Mouth Opening Finger Breadths: 3 ROM/Head Extension: Full Lungs: Clear to Auscultation, Normal Respiratory Effort Cardiovascular: Regular Rate, Regular Rhythm - Lab Values: Laboratory Last Values WBC 12.66 K/mm3 (3.98-10.04) H 12/04/20 05:10 RBC 3.62 M/mm3 (3.98-5.22) L 12/04/20 05:10 Hgb 11.8 gm/dl (11.2-15.7) 12/04/20 05:10 Hct 35.9 % (34.1-44.9) 12/04/20 05:10 MCV 99.2 fl (79.4-94.8) H 12/04/20 05:10 MCH 32.6 pg (25.6-32.2) H 12/04/20 05:10 MCHC 32.9 g/dl (32.2-35.5) 12/04/20 05:10 RDW Std Deviation 52.1 fL (36.4-46.3) H 12/04/20 05:10 Plt Count 241 K/mm3 (182-369) 12/04/20 05:10 MPV 8.9 fl (9.4-12.3) L 12/04/20 05:10 Neut % (Auto) 78.2 % (34.0-71.1) H 12/04/20 05:10 Lymph % (Auto) 13.1 % (19.3-51.7) L 12/04/20 05:10 Crowley % (Auto) 8.1 % (4.7-12.5) 12/04/20 05:10 Eos % (Auto) 0.3 (0.7-5.8) L 12/04/20 05:10 Baso % (Auto) 0.1 % (0.1-1.2) 12/04/20 05:10 Neut # (Auto) 9.89 K/mm3 (1.56-6.13) H 12/04/20 05:10 Lymph # (Auto) 1.66 K/mm3 (1.18-3.74) 12/04/20 05:10 Crowley # (Auto) 1.03 K/mm3 (0.24-0.36) H 12/04/20 05:10 Eos # (Auto) 0.04 K/mm3 (0.04-0.36) 12/04/20 05:10 Baso # (Auto) 0.01 K/mm3 (0.01-0.08) 12/04/20 05:10 SARS-CoV-2 RNA (CM) Negative (NEGATIVE) 12/04/20 05:10 Blood Type A POSITIVE 12/04/20 05:10 Gel Antibody Screen Negative 12/04/20 05:10 - Allergies Allergies/Adverse Reactions: Allergies Allergy/AdvReac Type Severity Reaction Status Date / Time No Known Allergies Allergy Verified 12/04/20 03:55 - Anesthesia Plan Pre-Op Medication Ordered: None - Acknowledgements Anesthesia Type Planned: Epidural Pt an Appropriate Candidate for the Planned Anesthesia: Yes Alternatives and Risks of Anesthesia Discussed w Pt/Guardian: Yes Pt/Guardian Understands and Agrees with Anesthesia Plan: Yes PreAnesthesia Questionnaire - Past Health History Medical/Surgical History: Denies Medical/Surgical History HEENT History: Reports: Other (See Below) Other HEENT History: wears glasses Cardiovascular History: Reports: None Respiratory History: Reports: None Gastrointestinal History: Reports: GERD (with preg) 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: , 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 Other OB/BYN History: 15 week demise with current Endocrine/Metabolic History: Reports: Diabetes, Gestational Other Endocrine/Metabolic History: Gestational diabetes with last Hematologic History: Reports: Anemia - Past Surgical History HEENT Surgical History: Reports: Oral Surgery, Other (See Below) Other HEENT Surgeries/Procedures: wisdom teeth removal Endocrine Surgical History: Reports: None - SUBSTANCE USE Tobacco Use Status *Q: Never Tobacco User Tobacco Use Within Last Twelve Months: No Second Hand Smoke Exposure: No Recreational Drug Use History: No - HOME MEDS Home Medications: Home Meds Pnv No.95/Ferrous Fum/Folic AC [ Tablet] 1 each PO DAILY 12/30/17 [History] Ferrous Sulfate [Iron] 325 mg PO DAILY 05/14/19 [History] Ascorbate Calcium [Vitamin C] 1 tab PO DAILY 12/04/20 [History] - CURRENT (IN HOUSE) MEDS Current Meds: Current Medications Diphenhydramine HCl (Diphenhydramine 50 Mg/Ml Sdv) 25 mg IVPUSH Q6H PRN PRN Reason: pruritis Ephedrine Sulfate (Ephedrine 50 Mg/Ml Sdv) 5 mg IVPUSH ASDIRECTED PRN PRN Reason: Hypotension Fentanyl (Fentanyl 100 Mcg/2 Ml Sdv) 100 mcg EPIDUR Q3H PRN PRN Reason: Pain Last Admin: 12/04/20 08:06 Dose: 100 mcg Documented by: Fentanyl/Bupivacaine HCl (Bupivacaine/Fentanyl/Ns 100 Ml Bag) 100 ml EPIDUR ASDIRECTED PRN PRN Reason: Pain Last Admin: 12/04/20 08:07 Dose: 100 ml Documented by: Lactated Ringer's (Ringers, Lactated) 1,000 mls @ 100 mls/hr IV ASDIRECTED [facility] Last Admin: 12/04/20 07:39 Dose: 500 mls/hr Documented by: Oxytocin/Lactated Ringer's (Pitocin In Lr 10 Units/1,000 Ml) 10 unit in 1,000 mls @ 12 mls/hr IV TITRATE [facility]; Protocol Oxytocin/Lactated Ringer's (Pitocin In Lr 10 Units/1,000 Ml) 10 unit in 1,000 mls @ 500 mls/hr IV .CONTINUOUS [facility] Nalbuphine HCl (Nalbuphine 10 Mg/1 Ml Vial) 10 mg IVPUSH Q2H PRN PRN Reason: Pain Sodium Chloride (Sodium Chloride 0.9% 10 Ml Syringe) 10 ml FLUSH ASDIRECTED PRN PRN Reason: Keep Vein Open
--- NOTE | 2020-12-04 11:15 | PCM.LDHP ---
L&D History of Present Illness - General Date of Service: 12/03/20 Admit Problem/Dx: Patient Status Order with Admit Dx/Problem 12/04/20 03:52 Patient Status [ADT] Routine 12/04/20 05:35 Admission Status [Patient Status] [ADT] Routine Admission Diagnosis/Problem Admission Diagnosis/Problem - History of Present Illness Introduction:: 34 year old at 39w3 here in labor. care with Dr. Beckford complicated by history of macrosomia. Pain Score: 6 - Related Data Allergies/Adverse Reactions: Allergies Allergy/AdvReac Type Severity Reaction Status Date / Time No Known Allergies Allergy Verified 12/04/20 03:55 Home Medications: Home Meds Pnv No.95/Ferrous Fum/Folic AC [ Tablet] 1 each PO DAILY 12/30/17 [History] Ferrous Sulfate [Iron] 325 mg PO DAILY 05/14/19 [History] Ascorbate Calcium [Vitamin C] 1 tab PO DAILY 12/04/20 [History] Past Medical History - Past Health History Medical/Surgical History: Denies Medical/Surgical History HEENT History: Reports: Other (See Below) Other HEENT History: wears glasses Cardiovascular History: Reports: None Respiratory History: Reports: None Gastrointestinal History: Reports: GERD (with preg) 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: , 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 Other OB/BYN History: 15 week demise with current Endocrine/Metabolic History: Reports: Diabetes, Gestational Other Endocrine/Metabolic History: Gestational diabetes with last Hematologic History: Reports: Anemia - Past Surgical History HEENT Surgical History: Reports: Oral Surgery, Other (See Below) Other HEENT Surgeries/Procedures: wisdom teeth removal Endocrine Surgical History: Reports: None Social & Family History - Family History Family Medical History: No Pertinent Family History - Tobacco Use Tobacco Use Status *Q: Never Tobacco User Second Hand Smoke Exposure: No - Recreational Drug Use Recreational Drug Use: No H&P Review of Systems - Review of Systems: Review Of Systems: See Below General: Reports: No Symptoms HEENT: Reports: No Symptoms Pulmonary: Reports: No Symptoms Cardiovascular: Reports: No Symptoms Gastrointestinal: Reports: No Symptoms Genitourinary: Reports: No Symptoms Musculoskeletal: Reports: No Symptoms Skin: Reports: No Symptoms Psychiatric: Reports: No Symptoms Neurological: Reports: No Symptoms Hematologic/Lymphatic: Reports: No Symptoms Immunologic: Reports: No Symptoms L&D Exam - Exam Exam: See Below - Vital Signs Vital Signs: Last Vital Signs Temp 37.2 C 12/04/20 04:00 Pulse 88 12/04/20 04:00 Resp 16 12/04/20 04:00 BP 137/69 12/04/20 04:00 Pulse Ox 100 12/04/20 04:00 Weight: 81.329 kg - OB Specific Contraction Intensity: Moderate to Strong Movement: Active Heart Tones: Present Heart Rate (FHR) Variability: Moderate (6-25 bpm) Presentation: Vertex - Garg Score Garg Score Cervix Position: Anterior Garg Score Consistency: Soft Garg Score Effacement: 51-70% Garg Score Dilation: 3-4 cm Garg Score Infant's Station: -1 ,0 Garg Score Total: 10 - Exam General: Alert, Oriented HEENT: PERRLA, Conjunctiva Clear, EACs Clear, EOMI, Hearing Intact, Mucosa Moist & [place], Nares Patent, Normal Nasal Septum, Posterior Pharynx Clear, TMs Clear Neck: Supple, Trachea Midline Lungs: Clear to Auscultation, Normal Respiratory Effort Cardiovascular: Regular Rate, Regular Rhythm GI/Abdominal Exam: Normal Bowel Sounds, Soft, Non-Tender, No Organomegaly, No Distention, No Abnormal Bruit, No Mass, Pelvis Stable Back Exam: Normal Inspection, Full Range of Motion Extremities: Normal Inspection, Normal Range of Motion, Non-Tender, No Pedal Edema, Normal Capillary Refill Skin: Warm, Dry, Intact Neurological: Cranial Nerves Intact, Reflexes Equal Bilateral Psychiatric: Alert, Normal Affect, Normal Mood - Patient Data Lab Results Last 24 hrs: Laboratory Results - last 24 hr 12/04/20 12/04/20 12/04/20 Range/Units 05:10 05:10 05:10 WBC 12.66 H (3.98-10.04) K/mm3 RBC 3.62 L (3.98-5.22) M/mm3 Hgb 11.8 (11.2-15.7) gm/dl Hct 35.9 (34.1-44.9) % MCV 99.2 H (79.4-94.8) fl MCH 32.6 H (25.6-32.2) pg MCHC 32.9 (32.2-35.5) g/dl RDW Std Deviation 52.1 H (36.4-46.3) fL Plt Count 241 (182-369) K/mm3 MPV 8.9 L (9.4-12.3) fl Neut % (Auto) 78.2 H (34.0-71.1) % Lymph % (Auto) 13.1 L (19.3-51.7) % Richardson % (Auto) 8.1 (4.7-12.5) % Eos % (Auto) 0.3 L (0.7-5.8) Baso % (Auto) 0.1 (0.1-1.2) % Neut # (Auto) 9.89 H (1.56-6.13) K/mm3 Lymph # (Auto) 1.66 (1.18-3.74) K/mm3 Richardson # (Auto) 1.03 H (0.24-0.36) K/mm3 Eos # (Auto) 0.04 (0.04-0.36) K/mm3 Baso # (Auto) 0.01 (0.01-0.08) K/mm3 SARS-CoV-2 RNA (CM) Negative (NEGATIVE) Blood Type A POSITIVE Gel Antibody Screen Negative Result Diagrams: 12/04/20 05:10 Problem List Initiated/Reviewed/Updated: Yes Orders Last 24hrs: Active Orders 24 hr Category Date Time Status Admission Status [Patient Status] [ADT] Routine ADT 12/04/20 05:35 Active Activity as Tolerated [RC] PFP Care 12/04/20 04:56 Active Communication Order [RC] ASDIRECTED Care 12/04/20 04:56 Active Communication Order [RC] ASDIRECTED Care 12/04/20 07:52 Active Cooling Warming Measures [RC] ASDIRECTED Care 12/04/20 07:52 Active Heart Tones [RC] ASDIRECTED Care 12/04/20 04:56 Active Notify Provider [RC] ASDIRECTED Care 12/04/20 07:52 Active Notify Provider [RC] ASDIRECTED Care 12/04/20 07:53 Active Notify Provider [RC] PFP Care 12/04/20 04:56 Active Notify Provider [RC] PRN Care 12/04/20 04:56 Active Oxygen Therapy [RC] ASDIRECTED Care 12/04/20 07:52 Active Peripheral IV Care [RC] . DIRECTED Care 12/04/20 04:56 Active Pulse Oximetry [RC] ASDIRECTED Care 12/04/20 07:52 Active Urinary Catheter Assessment [RC] ASDIRECTED Care 12/04/20 04:55 Active Vaginal Exam [RC] PRN Care 12/04/20 03:54 Active Vital Signs [RC] 03,09,15,21 Care 12/04/20 03:52 Active Vital Signs [RC] Q1H Care 12/04/20 07:52 Active Regular Diet [DIET] Diet 12/04/20 Breakfast Active RAPID PLASMA REAGIN,RPR [CHEM] Routine Lab 12/04/20 05:10 Received Bupivacaine/fentaNYL/NS [fentaNYL/Bupivacaine/NS 2 MCG- Med 12/04/20 07:52 Active 0.125% 100 ML] 100 ml EPIDUR ASDIRECTED PRN Lactated Ringers [Ringers, Lactated] 1,000 ml Med 12/04/20 05:00 Active IV ASDIRECTED Nalbuphine [Nubain] Med 12/04/20 04:55 Active 10 mg IVPUSH Q2H PRN Oxytocin/Lactated Ringers [Pitocin in LR 10 Units/1,000 Med 12/04/20 05:00 Active ML] 10 unit in 1,000 ml IV .CONTINUOUS Oxytocin/Lactated Ringers [Pitocin in LR 10 Units/1,000 Med 12/04/20 05:00 Active ML] 10 unit in 1,000 ml IV TITRATE Sodium Chloride 0.9% [Saline Flush] Med 12/04/20 04:55 Active 10 ml FLUSH ASDIRECTED PRN diphenhydrAMINE [Benadryl] Med 12/04/20 07:52 Active 25 mg IVPUSH Q6H PRN ePHEDrine [ePHEDrine sulfate] Med 12/04/20 07:52 Active 5 mg IVPUSH ASDIRECTED PRN fentaNYL [Sublimaze] Med 12/04/20 07:52 Active 100 mcg EPIDUR Q3H PRN Electronic Heart Tones Ext w TOCO [WOMSER] Oth 12/04/20 04:56 Ordered Routine Electronic Heart Tones Internal [WOMSER] Per Unit Oth 12/04/20 04:56 Ordered Routine Peripheral IV Insertion Adult [OM.PC] Routine Oth 12/04/20 04:56 Ordered Resuscitation Status Routine Resus Stat 12/04/20 03:52 Ordered Medication Orders Diphenhydramine HCl (Diphenhydramine 50 Mg/Ml Sdv) 25 mg IVPUSH Q6H PRN PRN Reason: pruritis Ephedrine Sulfate (Ephedrine 50 Mg/Ml Sdv) 5 mg IVPUSH ASDIRECTED PRN PRN Reason: Hypotension Fentanyl (Fentanyl 100 Mcg/2 Ml Sdv) 100 mcg EPIDUR Q3H PRN PRN Reason: Pain Last Admin: 12/04/20 08:06 Dose: 100 mcg Documented by: ZAK Fentanyl/Bupivacaine HCl (Bupivacaine/Fentanyl/Ns 100 Ml Bag) 100 ml EPIDUR ASDIRECTED PRN PRN Reason: Pain Last Admin: 12/04/20 08:07 Dose: 100 ml Documented by: ZAK Lactated Ringer's (Ringers, Lactated) 1,000 mls @ 100 mls/hr IV ASDIRECTED BARRERA Last Admin: 12/04/20 07:39 Dose: 500 mls/hr Documented by: Infusion: 12/04/20 07:39 Dose: 100 mls/hr Documented by: Admin: 12/04/20 07:02 Dose: 100 mls/hr Documented by: HERON Oxytocin/Lactated Ringer's (Pitocin In Lr 10 Units/1,000 Ml) 10 unit in 1,000 mls @ 12 mls/hr IV TITRATE BARRERA; Protocol Last Titration: 12/04/20 10:00 Dose: 4 munits/min, 24 mls/hr Documented by: Admin: 12/04/20 09:06 Dose: 2 munits/min, 12 mls/hr Documented by: ZAK Oxytocin/Lactated Ringer's (Pitocin In Lr 10 Units/1,000 Ml) 10 unit in 1,000 mls @ 500 mls/hr IV .CONTINUOUS BARRERA Nalbuphine HCl (Nalbuphine 10 Mg/1 Ml Vial) 10 mg IVPUSH Q2H PRN PRN Reason: Pain Sodium Chloride (Sodium Chloride 0.9% 10 Ml Syringe) 10 ml FLUSH ASDIRECTED PRN PRN Reason: Keep Vein Open Assessment/Plan Comment:: Term labor. Labs. continous monitoring. Epidural prn Anticipate . AROM clear fluid.
--- NOTE | 2020-12-04 11:18 | PCM.SN.2 ---
- Free Text/Narrative Note: Stage I - Patient presented in active labor. Progressed to complete with overall reassuring heart tones. Epidural for anesthesia. AROM of meconium stained fluid. Stage II- of viable female. Weight 3990g. APGARS 8/9 at 1047. Head delivered in controlled manner. Body and shoulders atraumatically. Positive cry. To maternal abdomen. Cord clamped and cut. Cord blood collected. Stage III - of intact placenta. 3vc. EBL 250. 2nd degree laceration repaired with 3-0 vicryl. Time Documentation
[2020-12-04] MEDS ORDERED: Ibuprofen 600 MG Tab PO PRN ×2 (13:37→22:00)
[2020-12-04] MEDS ORDERED: Benzocaine/Menthol 20%-0.5% Spray 78 GM Cannister TOP PRN ×2 (13:38→19:27)
[2020-12-04] MEDS ORDERED: Witch Hazel Medicated Pads 40/Jar TOP PRN ×2 (13:38→19:27)
--- NOTE | 2020-12-05 06:59 | PCM48HPAN ---
Post Anesthesia Note - EVALUATION WITHIN 48HRS OF ANESTHETIC Vital Signs in Normal Range: Yes Patient Participated in Evaluation: Yes Respiratory Function Stable: Yes Airway Patent: Yes Cardiovascular Function Stable: Yes Hydration Status Stable: Yes Pain Control Satisfactory: Yes Nausea and Vomiting Control Satisfactory: Yes Mental Status Recovered: Yes Vital Signs: Last Vital Signs Temp 36.0 C L 12/05/20 03:08 Pulse 68 12/05/20 03:08 Resp 14 12/05/20 03:08 BP 120/66 12/05/20 03:08 Pulse Ox 97 12/05/20 03:08 - COMMENTS/OBSERVATIONS Free Text/Narrative:: no anesthesia complications noted
[2020-12-05 09:50] VITALS: BP 114/70; PULSE 69
--- NOTE | 2020-12-05 10:28 | PCM.DCSUM1 ---
Discharge Summary - Hospital Course Free Text/Narrative:: Stage I - Patient presented in active labor. Progressed to complete with overall reassuring heart tones. Epidural for anesthesia. AROM of meconium stained fluid. Stage II- of viable female. Weight 3990g. APGARS 8/9 at 1047. Head delivered in controlled manner. Body and shoulders atraumatically. Positive cry. To maternal abdomen. Cord clamped and cut. Cord blood collected. Stage III - of intact placenta. 3vc. EBL 250. 2nd degree laceration repaired with 3-0 vicryl. , the patient is doing well. She has minimal lochia, is voiding well, has been ambulating well and has had normal vital signs. She is desiring discharge home. Diagnosis: Stroke: No - Discharge Data Discharge Date: 12/05/20 Discharge Disposition: Home, Self-Care 01 Condition: Good - Referral to Home Health Primary Care Physician: Richard Beckford MD - Discharge Diagnosis/Problem(s) (1) 39 weeks gestation of SNOMED Code(s): 56096355 ICD Code: Z3A.39 - 39 WEEKS GESTATION OF Status: Acute Current Visit: Yes (2) 39 weeks gestation of SNOMED Code(s): 34951599 ICD Code: Z3A.39 - 39 WEEKS GESTATION OF Status: Acute Current Visit: No (3) Vaginal delivery SNOMED Code(s): 040622461 ICD Code: O80 - ENCOUNTER FOR FULL-TERM UNCOMPLICATED DELIVERY Status: Acute Current Visit: No - Patient Instructions Diet: Regular Diet as Tolerated (Nursing diet with increased calories and calcium as recommended) Activity: As Tolerated (No intercourse or tampons until bleeding resolves) Driving: May Drive Today Showering/Bathing: May Shower (May take a bath) Notify Provider of: Fever, Increased Pain, Swelling and Redness - Discharge Plan Home Medications: Home Meds Pnv No.95/Ferrous Fum/Folic AC [ Tablet] 1 each PO DAILY 12/30/17 [History] Ferrous Sulfate [Iron] 325 mg PO DAILY 05/14/19 [History] Ascorbate Calcium [Vitamin C] 1 tab PO DAILY 12/04/20 [History] Ibuprofen [Motrin] 600 mg PO Q6H PRN tablet 12/05/20 [Rx] Referrals: Richard Beckford MD [Primary Care Provider] - (Return to clinic[facility]. [facility] weeks.) - Discharge Summary/Plan Comment DC Time >30 min.: No Total # of Minutes for Discharge Time: 10 Discharge Summary/Plan Comment: Discharge instructions: 1. Discharge home 2. Diet, activity and follow-up discussed with patient. Recommend nursing diet with increased calories and calcium. 3. Precautions given concern increased pain, bleeding, temperature, sig ns/symptoms of DVT/PE. 4. Medications per home medication was printed, discussed with and given to the patient. 5. Return to clinic-Dr. Beckford[facility] in 2 weeks. Diagnosis: Term -delivered Condition: Good - Patient Data Vitals - Most Recent: Last Vital Signs Temp 36.4 C 12/05/20 08:56 Pulse 69 12/05/20 08:56 Resp 16 12/05/20 08:56 BP 114/70 12/05/20 08:56 Pulse Ox 98 12/05/20 08:56 Weight - Most Recent: 81.329 kg I&O - Last 24 hours: Intake & Output 12/04/20 12/05/20 12/05/20 22:59 06:59 14:59 Intake Total 120 Balance 120 Lab Results - Last 24 hrs: Laboratory Results - last 24 hr 12/04/20 Range/Units 05:10 RPR Non-reactive (NONREACTIVE) Med Orders - Current: Current Medications Benzocaine/Menthol (Benzocaine/Menthol 20%-0.5% [place] 78 Gm Cannister) 0 gm TOP ASDIRECTED PRN PRN Reason: Perineal Comfort Measure Ibuprofen (Ibuprofen 600 Mg Tab) 600 mg PO Q6H PRN PRN Reason: Mild pain or fever Last Admin: 12/05/20 03:06 Dose: 600 mg Documented by: Socorro Darby (Socorro Darby Medicated Pads 40/Jar) 1 pad TOP ASDIRECTED PRN PRN Reason: Perineal Comfort Measure Discontinued Medications Benzocaine/Menthol (Benzocaine/Menthol 20%-0.5% [place] 78 Gm Cannister) 1 gm TOP ASDIRECTED PRN PRN Reason: Pain Last Admin: 12/04/20 16:09 Dose: 1 applic Documented by: Bupivacaine HCl (Bupivacaine 0.25% 10 Ml Sdv) 10 ml .ROUTE .STK-MED ONE Stop: 12/04/20 00:01 Diphenhydramine HCl (Diphenhydramine 50 Mg/Ml Sdv) 25 mg IVPUSH Q6H PRN PRN Reason: pruritis Ephedrine Sulfate (Ephedrine 50 Mg/Ml Sdv) 5 mg IVPUSH ASDIRECTED PRN PRN Reason: Hypotension Fentanyl (Fentanyl 100 Mcg/2 Ml Sdv) 100 mcg EPIDUR Q3H PRN PRN Reason: Pain Last Admin: 12/04/20 08:06 Dose: 100 mcg Documented by: Fentanyl/Bupivacaine HCl (Bupivacaine/Fentanyl/Ns 100 Ml Bag) 100 ml EPIDUR ASDIRECTED PRN PRN Reason: Pain Last Admin: 12/04/20 08:07 Dose: 100 ml Documented by: Lactated Ringer's (Ringers, Lactated) 1,000 mls @ 100 mls/hr IV ASDIRECTED BARRERA Last Admin: 12/04/20 07:39 Dose: 500 mls/hr Documented by: Oxytocin/Lactated Ringer's (Pitocin In Lr 10 Units/1,000 Ml) 10 unit in 1,000 mls @ 12 mls/hr IV TITRATE BARRERA; Protocol Last Titration: 12/04/20 10:00 Dose: 4 munits/min, 24 mls/hr Documented by: Oxytocin/Lactated Ringer's (Pitocin In Lr 10 Units/1,000 Ml) 10 unit in 1,000 mls @ 500 mls/hr IV .CONTINUOUS BARRERA Ibuprofen (Ibuprofen 600 Mg Tab) 600 mg PO Q6H PRN PRN Reason: Pain Last Admin: 12/04/20 16:09 Dose: 600 mg Documented by: Nalbuphine HCl (Nalbuphine 10 Mg/1 Ml Vial) 10 mg IVPUSH Q2H PRN PRN Reason: Pain Sodium Chloride (Sodium Chloride 0.9% 10 Ml Syringe) 10 ml FLUSH ASDIRECTED PRN PRN Reason: Keep Vein Open Witch Mehnaz (Witch Mehnaz Medicated Pads 40/Jar) 1 pad TOP ASDIRECTED PRN PRN Reason: Pain Last Admin: 12/04/20 16:09 Dose: 1 applic Documented by:
--- NOTE | 2020-12-05 11:41 | PCM48HPAN ---
Post Anesthesia Note - EVALUATION WITHIN 48HRS OF ANESTHETIC Vital Signs in Normal Range: Yes Patient Participated in Evaluation: Yes Respiratory Function Stable: Yes Airway Patent: Yes Cardiovascular Function Stable: Yes Hydration Status Stable: Yes Pain Control Satisfactory: Yes Nausea and Vomiting Control Satisfactory: Yes Mental Status Recovered: Yes Vital Signs: Last Vital Signs Temp 36.4 C 12/05/20 08:56 Pulse 69 12/05/20 08:56 Resp 16 12/05/20 08:56 BP 114/70 12/05/20 08:56 Pulse Ox 98 12/05/20 08:56
== END 2020-12-05 14:05 | disposition home or self-care (01) | DRG 560 ==
LOC: JD.OBCHECK 03:36 → JD.OB 03:36 → JD.OBCHECK 05:34 → JD.OB 05:35 → OBSVTOIN 10:47 → JD.OB 10:48
PROVIDERS: ADMIT Obstetrics & Gynecology; ATTEND Obstetrics & Gynecology
PROC: 10E0XZZ Delivery of Products of Conception, External Approach (ICD-10-PCS; principal; 2020-12-04)
PROC: 10907ZC Drainage of Amniotic Fluid, Therapeutic from Products of Conception, Via Natural or Artificial Opening (ICD-10-PCS; 2020-12-04)
PROC: 0KQM0ZZ Repair Perineum Muscle, Open Approach (ICD-10-PCS; 2020-12-04)
PROC: 3E0R3BZ Introduction of Anesthetic Agent into Spinal Canal, Percutaneous Approach (ICD-10-PCS; 2020-12-04)
PROC: 00HU33Z Insertion of Infusion Device into Spinal Canal, Percutaneous Approach (ICD-10-PCS; 2020-12-04)
DX: O99.02 Anemia complicating childbirth (principal); O77.0 Labor and delivery complicated by meconium in amniotic fluid; Z3A.39 39 weeks gestation of pregnancy; Z37.0 Single live birth; O70.1 Second degree perineal laceration during delivery; D64.9 Anemia, unspecified; O99.62 Diseases of the digestive system complicating childbirth; K21.9 Gastro-esophageal reflux disease without esophagitis; Z20.822 Contact with and (suspected) exposure to COVID-19
CPT/HCPCS: 01967; 36415; 51702; 59025; 59409; 85025; 86592; 86850; 86900; 86901; A9270-GY; J2590; J3010; J3490; J7120; U0002

== ENCOUNTER 2023-06-12 05:13 | Inpatient (IN) | payer BC ==
[2023-06-12] MEDS ORDERED: Nalbuphine HCl 10 MG/ 1ML Amp IVPUSH PRN (05:41)
[2023-06-12] MEDS ORDERED: Sodium Chloride 0.9% 10 ML Syringe FLUSH PRN (05:41)
[2023-06-12] MEDS ORDERED: Ondansetron 4 MG/2 ML SDV IVPUSH PRN (05:41)
[2023-06-12] MEDS: Oxytocin/Lactated Ringers 30 UNIT/500 ML BAG IV SCH (06:40)
[2023-06-12] MEDS: Lactated Ringers 1,000 ML IV SCH (06:41)
[2023-06-12] MEDS: Lidocaine 1% 50 ML MDV INJECT PRN (06:51)
[2023-06-12 06:53] LABS: BASOPHILS PERCENT AUTO 0.2 % (0.0-1.0); EOSINOPHILS PERCENT AUTO 0.2 % (0.0-6.0); HEMATOCRIT 35.4 % (37.0-47.0); HEMOGLOBIN 12.2 gm/dl (12.0-16.0); IMMATURE GRAN ABSOLUTE AUTO 0.05 K/mm3 (0.00-0.05); IMMATURE GRAN PERCENT AUTO 0.4 % (0.0-0.4); LYMPHOCYTES ABSOLUTE AUTO 1.4 K/mm3 (1.0-4.8); LYMPHOCYTES PERCENT AUTO 10.7 % (24.0-44.0); MEAN CORPUSCULAR HEMOGLOBIN 33.5 pg (28.0-32.0); MEAN CORPUSCULAR HGB CONC 34.5 g/dl (32.0-36.0); MEAN CORPUSCULAR VOLUME 97.3 fl (83.0-99.0); MEAN PLATELET VOLUME 9.3 fl (9.4-12.3); MONOCYTES PERCENT AUTO 7.3 % (0.0-8.0); NEUTROPHILS ABSOLUTE AUTO 10.7 K/mm3 (1.8-7.7); NEUTROPHILS PERCENT AUTO 81.2 % (41.0-71.0); PLATELET COUNT,PLT 191 K/mm3 (150-400); RED BLOOD CELL COUNT 3.64 M/mm3 (4.10-5.30); WHITE BLOOD CELL COUNT,WBC 13.13 K/mm3 (3.9-11.3)
[2023-06-12] MEDS ORDERED: Acetaminophen 325 MG Tab PO PRN (07:29)
[2023-06-12] MEDS: Witch Hazel Medicated Pads 40/Jar TOP PRN (07:40)
[2023-06-12] MEDS: Benzocaine/Menthol 20%-0.5% Spray 78 GM Cannister TOP PRN (07:40)
[2023-06-12] MEDS: Ibuprofen 600 MG Tab PO PRN (07:41)
[2023-06-12] MEDS ORDERED: Sodium Chloride 0.9% 10 ML Syringe FLUSH SCH (09:00)
[2023-06-13 10:09] VITALS: BP 128/68; PULSE 68
== END 2023-06-13 10:26 | disposition home or self-care (01) | DRG 560 ==
LOC: JD.OB 05:13 → UNDOADMOB 05:13 → JD.OB 06:32 → INTOOBSV 06:57 → OBSVTOIN 06:57 → JD.OB 06:57
PROVIDERS: ADMIT Obstetrics & Gynecology; ATTEND Obstetrics & Gynecology
PROC: 10E0XZZ Delivery of Products of Conception, External Approach (ICD-10-PCS; principal; 2023-06-12)
PROC: 0HQ9XZZ Repair Perineum Skin, External Approach (ICD-10-PCS; 2023-06-12)
DX: O70.0 First degree perineal laceration during delivery (principal); Z37.0 Single live birth; Z3A.39 39 weeks gestation of pregnancy; Z79.899 Other long term (current) drug therapy; Z98.890 Other specified postprocedural states
CPT/HCPCS: 36415; 59025; 59409; 85025; 86592; 86850; 86900; 86901; A9270-GY; J2001; J7120; J7999